=== PATIENT | male | born 1950 | race Caucasian/White ===

== ENCOUNTER 2022-06-04 14:58 | Emergency (ER) | payer MEDICARE ==
[2022-06-04] MEDS ORDERED: Sodium Chloride 0.9% 1000 ML 1,000 ML IV SCH (15:15)
[2022-06-04] MEDS ORDERED: Sodium Chloride 0.9% 1000 ML 1,000 ML ONE (15:17)
[2022-06-04 15:56] VITALS: BP 174/82
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
[2022-06-04 17:09] LABS: Absolute Neutrophil Ct (ANC) 3.48 x10^3/uL (1.4-6.9); Basophil (Absolute #) 0.02 x10^3/uL (0-0.4); Eosinophil % 3.1 % (0.00-5.0); Eosinophil (Absolute #) 0.16 x10^3/uL (0-0.5); Hematocrit 36.9 % (42-50); Lymphocyte (Absolute #) 0.89 x10^3/uL (1.0-4.6); Lymphocytes % 17.5 % (24.0-44.0); Mean Cell Volume 90.4 fL (78-100); Mean Corpuscular Hemoglobin 29.4 pg (26-32); Mean Corpuscular Hgb Concent. 32.5 g/dL (32-36); Mean Platelet Volume 9.4 fL (7.5-11.0); Monocyte (Absolute #) 0.52 x10^3/uL (0.0-1.3); Monocytes % 10.2 % (0.0-12.0); Neutrophil % 68.6 % (36.0-66.0); Platelet Count 155 x10^3/uL (150-450); Red Blood Count 4.08 x10^6/uL (4.1-5.6); Red Cell Distribution Width 13.5 % (11.5-14.0); White Blood Count 5.1 x10^3/uL (4.0-10.5)
[2022-06-04 17:15] LABS: Appearance CLEAR (CLEAR); Bilirubin NEGATIVE (NEGATIVE); Dipstick done @ ? MAIN LAB; Glucose NEGATIVE (NEGATIVE); Ketones NEGATIVE (NEGATIVE); Nitrite NEGATIVE (NEGATIVE); Ph 5.5 (5-6); Protein,Urine Dip NEGATIVE (Negative); RBC NEGATIVE Ery/ul (0-5); Specific Gravity 1.015 (1.005-1.025); Urobilinogen 0.2 mg/dL (0-1)
[2022-06-04 17:22] LABS: ALBUMIN 3.7 g/dL (3.5-5.0); ALKALINE PHOSPHATASE 113 U/L (38-126); ANION GAP 11.1 MEQ/L (5-15); BLOOD UREA NITROGEN 12 mg/dL (9-20); CHLORIDE 111 mmol/L (98-107); Calcium 8.5 mg/dL (8.4-10.2); Carbon Dioxide 20 mmol/L (22-30); Creatinine 1 0.94 mg/dL (0.66-1.25); EST GLOMERULAR FILTRATION RATE > 60.0 ML/MIN; Glucose 111 mg/dL (74-106); LIPASE 269 U/L (23-300); Potassium 4.2 mmol/L (3.5-5.1); SGOT/AST 31 U/L (17-59); SGPT/ALT 27 U/L (0-50); SODIUM 138 mmol/L (137-145)
[2022-06-04 17:34] LABS: Mucus SLIGHT /HPF (NEGATIVE); RBC 0-2 /HPF (0-2); WBC 0-2 /HPF (0-5)
[2022-06-04 17:35] LABS: Bacteria NONE SEEN /HPF (NEGATIVE); Urine Cultured Indicated? NO
[2022-06-04 18:02] VITALS: PULSE 73; O2SAT 97
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
== END 2022-06-04 18:02 | disposition home or self-care (01) ==
LOC: ED 14:58
DX: S00.83XA Contusion of other part of head, initial encounter (principal); S60.221A Contusion of right hand, initial encounter; V43.52XA Car driver injured in collision with other type car in traffic accident, initial encounter; N28.1 Cyst of kidney, acquired; E78.5 Hyperlipidemia, unspecified; I10 Essential (primary) hypertension; J44.9 Chronic obstructive pulmonary disease, unspecified; Z79.01 Long term (current) use of anticoagulants; Z79.899 Other long term (current) drug therapy
CPT/HCPCS: 36000; 36415; 70450; 71260; 72125; 73130; 74177; 80053; 81015; 83690; 84484; 85025; 93005; 99285

== ENCOUNTER 2022-07-04 11:14 | Emergency (ER) | payer MEDICARE ==
[2022-07-04] MEDS ORDERED: Sodium Chloride 0.9% 1000 ML 1,000 ML IV SCH (12:00)
[2022-07-04 12:31] LABS: Absolute Neutrophil Ct (ANC) 2.83 x10^3/uL (1.4-6.9); Basophil (Absolute #) 0.01 x10^3/uL (0-0.4); Eosinophil % 3.6 % (0.00-5.0); Eosinophil (Absolute #) 0.16 x10^3/uL (0-0.5); Hematocrit 37.1 % (42-50); Hemoglobin 12.3 g/dL (12.5-18.0); Lymphocyte (Absolute #) 1.05 x10^3/uL (1.0-4.6); Lymphocytes % 23.6 % (24.0-44.0); Mean Cell Volume 89.2 fL (78-100); Mean Corpuscular Hemoglobin 29.6 pg (26-32); Mean Corpuscular Hgb Concent. 33.2 g/dL (32-36); Mean Platelet Volume 8.9 fL (7.5-11.0); Monocyte (Absolute #) 0.39 x10^3/uL (0.0-1.3); Monocytes % 8.8 % (0.0-12.0); Neutrophil % 63.6 % (36.0-66.0); Platelet Count 135 x10^3/uL (150-450); Red Blood Count 4.16 x10^6/uL (4.1-5.6); Red Cell Distribution Width 13.2 % (11.5-14.0); White Blood Count 4.5 x10^3/uL (4.0-10.5)
[2022-07-04] MEDS ORDERED: Sodium Chloride 0.9% 1000 ML 1,000 ML ONE (12:45)
[2022-07-04 12:50] LABS: ANION GAP 11.4 MEQ/L (5-15); BILIRUBIN,TOTAL 0.4 mg/dL (0.2-1.3); Calcium 8.8 mg/dL (8.4-10.2); Creatinine 1 1.48 mg/dL (0.66-1.25); EST GLOMERULAR FILTRATION RATE 49.7 ML/MIN; Potassium 3.9 mmol/L (3.5-5.1); Total Protein 6.6 g/dL (6.3-8.2)
[2022-07-04 12:59] LABS: INR 1.03 (0.8-3.0); PROTIME 10.9 SECONDS (9.4-12.5); PTT 30.8 SECONDS (25.1-36.5)
[2022-07-04 13:06] LABS: D-DIMER QUANTITATIVE 0.88 mg/L (0.0-0.50)
[2022-07-04 13:10] VITALS: PULSE 65
--- NOTE | 2022-07-04 13:48 | XRAY ---
Indication: Left chest pain and short of breath. Elevated d-dimer. Multiple contiguous axial images obtained through the chest using 80 cc Isovue 370 contrast and PE protocol. Comparison: June 04, 2022 Good opacification of the pulmonary arteries to include the lobar and segmental branches. No pulmonary embolus. Heart not enlarged again with scattered chronic calcifications. Aorta is normal in course and caliber again with mild scattered arteriosclerotic calcifications. No pathologic mediastinal/hilar lymphadenopathy. New small hiatal hernia. Lungs again demonstrates mild bilateral dependent atelectasis, mild bibasilar subsegmental atelectasis/scarring right greater than left, and biapical subpleural cystic changes. No new pulmonary mass/nodule, infiltrate, effusion, or pneumothorax. Bony thorax intact again with osteopenia, mild/moderate degenerative changes throughout the spine, and left shoulder arthroplasty. Limited upper abdomen again demonstrates large right renal cyst and right main renal artery stent. Impression: 1. Negative pulmonary embolus. No new/acute cardiopulmonary abnormalities. 2. New small hiatal hernia. 3. Again chronic findings including bibasilar atelectasis/scarring, biapical subpleural cystic changes, arteriosclerotic disease, chronic bony findings, and right renal cyst.
[2022-07-04 14:08] VITALS: BP 145/78; O2SAT 98
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
== END 2022-07-04 14:44 | disposition home or self-care (01) ==
LOC: ED 11:14
DX: R09.1 Pleurisy (principal); R07.9 Chest pain, unspecified; R05.2 Subacute cough; E78.5 Hyperlipidemia, unspecified; I10 Essential (primary) hypertension; Z79.01 Long term (current) use of anticoagulants; Z79.899 Other long term (current) drug therapy
CPT/HCPCS: 36000; 36415; 71260; 80053; 84484; 85025; 85379; 85610; 85730; 93005; 99284

== ENCOUNTER 2022-08-28 09:13 | Day surgery (SDC) | payer MEDICARE, OTHER ==
--- NOTE | 2022-06-12 09:02 | HP ---
DATE OF SURGERY: 06/12/2022 HISTORY OF PRESENT ILLNESS: The patient is a 71-year-old patient who has had some reflux, epigastric pain, history of ulcers in the past. Last upper endoscopy five years ago. Family history negative for esophageal cancer. He is in need of upper endoscopy. PAST MEDICAL HISTORY: Hyperlipidemia, renal disease, history of ulcers, history post-traumatic stress disorder, chronic obstructive pulmonary disease, hypertension, reflux. PAST SURGICAL HISTORY: Knee arthroplasty. Colonoscopy. Upper endoscopy. Colon resection. Shoulder replacement. MEDICATIONS: Trazodone, tizanidine, sucralfate, rivaroxaban, nitroglycerin, lisinopril, levothyroxine, hydralazine, gabapentin, cetirizine, carvedilol, atorvastatin, aspirin. ALLERGIES: DOXYCYCLINE (BLISTERS). FAMILY HISTORY: Heart disease, chronic obstructive pulmonary disease as well as other cancers. Negative for colon cancer. Negative for esophageal cancer. SOCIAL HISTORY: Former smoker. No alcohol abuse. REVIEW OF SYSTEMS: Fourteen systems reviewed. No chest pain or palpitations. Other systems negative or noncontributory as above and per preadmission questionnaire. PHYSICAL EXAMINATION: GENERAL: No acute distress. HEENT: Sclerae nonicteric. NECK: No JVD. CHEST: Equal excursion, nonlabored breathing. CVS: Regular rate and rhythm. ABDOMEN: Soft. No peritoneal signs. EXTREMITIES: No significant edema. SKIN: Dry. NEURO: Alert, oriented, moving extremities symmetrically. PSYCH: Appropriate mood and affect. IMPRESSION: Reflux, epigastric pain, prior history of ulcer in the past in need of upper endoscopy and possible biopsy. General risk of bleeding or infection, risk of bowel injury or perforation possibly requiring further procedure, risk of missed or nondiagnosis or incomplete exam, possibly requiring barium swallow, other studies or procedures. General risk of anesthesia or sedation, risk of bowel prep but not limited to, consent obtained, will proceed with outpatient EGD, possible biopsy.
--- NOTE | 2022-08-28 08:22 | HP ---
DATE OF SURGERY: 08/28/2022 HISTORY OF PRESENT ILLNESS: The patient is a 72-year-old with history of some reflux and epigastric pain, history of ulcers in the past. He had upper endoscopy years ago. He is in need of upper endoscopy. Family history negative for esophageal cancer. He was originally scheduled back in June but canceled and rescheduling at this time. PAST MEDICAL HISTORY: Hyperlipidemia, renal disease, history of ulcers, history of post-traumatic stress disorder, heartburn, hypertension, chronic obstructive pulmonary disease. He had some sinus infections in the past, hard of hearing and wears glasses and has some reflux. PAST SURGICAL HISTORY: Knee arthroplasty, colonoscopy, fem/pop, colon resection in the past, shoulder replacement, upper endoscopy. MEDICATIONS: Trazodone, tizanidine, sucralfate, Xarelto, nitroglycerin, Myrbetriq, lisinopril, levofloxacin, hydralazine, gabapentin, cetirizine, carvedilol, atorvastatin, aspirin, ALLERGIES: DOXYCYCLINE (HAND BLISTERS). FAMILY HISTORY: Heart attack, cancer, chronic obstructive pulmonary disease. SOCIAL HISTORY: Former smoker. No alcohol abuse. REVIEW OF SYSTEMS: Fourteen systems reviewed. No chest pain or palpitations. Other systems negative or noncontributory as above and per preadmission questionnaire. PHYSICAL EXAMINATION: BMI 30.41. GENERAL: No acute distress. HEENT: Sclerae nonicteric. NECK: No JVD. CHEST: Equal excursion, nonlabored breathing. CVS: Regular rate and rhythm. ABDOMEN: Soft. No peritoneal signs. EXTREMITIES: No significant edema. NEURO: Alert, oriented, moving extremities symmetrically. PSYCH: Appropriate mood and affect. SKIN: Dry. IMPRESSION: History of some reflux, epigastric pain, prior history of ulcers. He is need of upper endoscopy for further evaluation. General risk of bleeding or infection, risk of bowel injury or perforation possibly requiring further procedure, risk of missed or nondiagnosis or incomplete exam, possibly requiring barium swallow, other studies or procedures. General risk of aspiration, risk of anesthesia but not limited to, consent obtained, will proceed with EGD possible biopsy as an outpatient.
[2022-08-28] MEDS ORDERED: Lactated Ringers 1,000 ML IV SCH (10:00)
[2022-08-28] MEDS ORDERED: DIPRIVAN 200 MG/20 ML IV ONE (11:27)
[2022-08-28] MEDS ORDERED: Xylocaine-Mpf 2% 5 Ml Vial ONE (11:27)
[2022-08-28 12:33] VITALS: O2SAT 97
[2022-08-28 12:43] VITALS: BP 175/89; PULSE 60
--- NOTE | 2022-08-28 14:12 | OP ---
SURGERY DATE/TIME: 08/28/2022 1129 PREOPERATIVE DIAGNOSIS: Increased reflux and epigastric pain, prior history of ulcers in the past, need for follow up upper endoscopy. POSTOPERATIVE DIAGNOSES: 1) Mild distal erosive esophagitis. 2) Patchy area of salmon-pink mucosa island proximal esophagus but not in the distal esophagus. PROCEDURES: 1) EGD with cold biopsy of the small bowel to evaluate for celiac sprue. 2) Cold biopsy of the antrum to evaluate for Helicobacter pylori. 3) Multiple cold biopsies distal esophagus to evaluate for esophagitis. 4) Multiple cold biopsies of patchy island area of proximal esophagus salmon-pink mucosa proximal esophagus. SURGEON: Dr. Jamey Merritt. ANESTHESIA: MAC. ESTIMATED BLOOD LOSS: Minimal. INDICATIONS: As noted above. Risks and benefits explained in detail and not limited to and consent obtained. DESCRIPTION OF PROCEDURE AND FINDINGS: The patient is taken to the endoscopy room. MAC anesthesia was introduced. After official time out and no disagreement with planned procedure, a bite block positioned. Video gastroscope easily passed down through the esophagus to the patent pylorus to the third portion of the duodenum. First, second and third portion of the duodenum no signs of any ulcers. Cold biopsy taken to rule out celiac or other causes of epigastric pain and symptoms. No ulcers had been seen in the stomach on the way through. Scope pulled back into the stomach. There was just some mild erythema whether this is normal variation versus early inflammation, cold biopsy is taken of the antrum for Helicobacter pylori. Good hemostasis noted. On retroflex the gastroesophageal junction snug against the scope. No signs of any hiatal hernia seen on endoscopy. The scope is straightened. Gastroesophageal junction about 40 cm. There was a short segment of some distal erosive esophagitis with salmon-pink mucosa this area was short in nature, just a few millimeters. There was further just very tiny, thin evidence of what looks like he had some erosions extending up a little higher in the distal esophagus but again it looks like it is maybe old and healed or partially healed. Otherwise the scope pulled up. No signs of any masses. Multiple cold biopsies had been taken in distal esophagus. Scope pulled back up the proximal esophagus. At about 7 to 8 cm there is a patchy island of some salmon-pink mucosa extending around. No signs of any masses. Multiple cold biopsies taken of this to evaluate for inflammation versus Medrano's. Good hemostasis noted. Scope is withdrawn. Findings discussed with his brother out in the waiting area.
== END 2022-08-28 12:48 | disposition home or self-care (01) ==
LOC: SDC 09:13
PROVIDERS: ATTEND Surgery
DX: K22.10 Ulcer of esophagus without bleeding (principal); K21.9 Gastro-esophageal reflux disease without esophagitis; R10.13 Epigastric pain; Z87.11 Personal history of peptic ulcer disease
CPT/HCPCS: 99100; J2704

== ENCOUNTER 2022-11-10 12:26 | Emergency (ER) | payer MEDICARE ==
[2022-11-10] MEDS ORDERED: TORAdol 30 mg Injection IM ONE (12:44)
[2022-11-10] MEDS ORDERED: TORAdol 30 mg Injection ONE (12:47)
--- NOTE | 2022-11-10 12:50 | ERPHSYRPT ---
- History of Present Illness Source: patient Exam Limitations: no limitations Patient Subjective Stated Complaint: pt was lifting heavy boxes yesterday when he felt his left shoulder pop and began to have pain that radiated down his left arm to his pinky. pt reports a previous L shoulder replacement with hardware. Triage Nursing Assessment: pt is axo3, pupils perrl, afebrile, resps easy and non labored, cap refill < 3 seconds, radial pulses strong and equal, pt skin pi nk warm dry. pt sensation intact. ROM limited to the LUE, old surgical scar noted to the L shoulder. no obvious injury or deformity noted. Physician History: 72 yo WM w L shoulder replacement complains of L shoulder pain after lifting a box of heavy tools yesterday. Pt heard a "pop" and currently has pain rated 8/10. He denies falling and other injuries at this time. No chest pain or dyspnea noted. Occurred: yesterday Method of Injury: other (Lifting box of tools) Quality: constant Severity of Pain-Max: severe Severity of Pain-Current: severe Extremities Pain Location: shoulder: left Modifying Factors: Improves With: movement Associated Symptoms: none Allergies/Adverse Reactions: doxycycline Allergy (Verified 11/10/22 12:41) hand blisters [id number]-[id number]-ImA Reductase Inhibitor Adverse Reaction (Verified 11/10/22 12:41) leg weakness Home Medications: Amlodipine Besylate [Norvasc] 10 mg PO DAILY 05/01/22 [History] Atorvastatin Calcium [Lipitor] 80 mg PO UD 05/01/22 [History] Cetirizine HCl 10 mg PO DAILY 05/01/22 [History] Cholecalciferol (Vitamin D3) [Vitamin D3] 1 tab PO DAILY 05/01/22 [History] Gabapentin [Neurontin ] 1 tab PO TID 05/01/22 [History] Hydralazine HCl 50 mg PO BID 05/01/22 [History] Mirabegron [Myrbetriq] 25 mg PO HS 05/01/22 [History] Multivit with Minerals/Lutein [Vitrum Senior Tablet] 1 each PO DAILY 05/01/22 [History] Sucralfate 1 gm [Carafate 1 GM] 1 g PO ACHS 05/01/22 [History] Tizanidine HCl 4 mg [Zanaflex 4 MG] 1 tab PO TID 05/01/22 [History] Trazodone HCl 3 tab PO HS 05/01/22 [History] buPROPion HCL [Wellbutrin Xl] 300 mg PO DAILY 05/01/22 [History] carvediloL [Carvedilol] 25 mg PO BID 05/01/22 [History] lisinopriL [Lisinopril] 40 mg PO DAILY 05/01/22 [History] Nitroglycerin 0.4 mg Tablet [Nitrostat 0.4 MG Tablet] 0.4 mg SL UD 05/30/22 [History] Omeprazole 40 mg PO BID 08/28/22 [History] Hx Tetanus, Diphtheria Vaccination/Date Given: Yes Hx Influenza Vaccination/Date Given: Yes Hx Pneumococcal Vaccination/Date Given: Yes Immunizations Up to Date: Yes Travel Risk - International Travel Have you traveled outside of the country in past 3 weeks: No - Coronavirus Screening Are you exhibiting any of the following symptoms?: No Close contact with a COVID-19 positive Pt in past 14-21 Days: No - Vaccine Status Have you recieved a Covid-19 vaccination: Yes Transmission Mechanic: Moderna - Vaccination Dates Date of 2cond Vaccination (if applicable): unk - Review of Systems Constitutional: No Symptoms Eyes: No Symptoms Ears, Nose, & Throat: No Symptoms Respiratory: No Symptoms Cardiac: No Symptoms Abdominal/Gastrointestinal: No Symptoms Skin: No Symptoms Neurological: No Symptoms Psychological: No Symptoms Endocrine: No Symptoms Hematologic/Lymphatic: No Symptoms Immunological/Allergic: No Symptoms - Past Medical History Pertinent Past Medical History: Yes Neurological History: No Pertinent History ENT History: No Pertinent History Cardiac History: Coronary Artery Disease, Deep Vein Thrombosis, High Cholesterol, Hypertension, Other Respiratory History: COPD Endocrine Medical History: No Pertinent History Musculoskeletal History: Degenerative Disk Disease GI Medical History: Colitis, GERD, Ulcer History: No Pertinent History Psycho-Social History: Depression Male Reproductive Disorders: Prostate Problems - Past Surgical History Past Surgical History: Yes Neuro Surgical History: No Pertinent History Cardiac: Cardiac Catheterization, Cardiac Stent Respiratory: No Pertinent History Gastrointestinal: Bowel Surgery, Colon Resection, Hernia Repair Genitourinary: No Pertinent History Musculoskeletal: No Pertinent History, Orthopedic Surgery Male Surgical History: Vasectomy Other Surgical History: rt knee,lt shoulder - Social History Smoking Status: Current every day smoker How long have you smoked: age 9 Exposure to second hand smoke: No Drug Use: none Patient Lives Alone: Yes - Nursing Vital Signs Nursing Vital Signs: Initial Vital Signs Temperature 98 F 11/10/22 12:31 Pulse Rate 73 11/10/22 12:31 Respiratory Rate 20 11/10/22 12:31 Blood Pressure 152/86 11/10/22 12:31 O2 Sat by Pulse Oximetry 100 11/10/22 12:31 Pain Scale Pain Intensity 8 Hypertensive - Physical Exam General Appearance: no apparent distress Eyes, Ears, Nose, Throat Exam: normal ENT inspection, TMs normal, pharynx normal, moist mucous membranes Neck Exam: normal inspection, non-tender, supple, full range of motion, No Brudzinski, No Kernig's, No meningismus, No carotid bruit Cardiovascular/Respiratory Exam: chest non-tender, normal breath sounds, regular rate/rhythm, heart sounds normal, no ecchymosis Abdominal Exam: non-tender, soft (+ ileostomy) Back Exam: normal inspection, normal range of motion, No CVA tenderness, No ve rtebral tenderness Shoulder Exam: bone tenderness (L shoulder TTP anteriorly/pain w movement/Good radial pulse, distal sensation, and capillary return) Elbow/Forearm Exam: normal inspection Wrist Exam: normal inspection Hand Exam: normal inspection Neuro/Tendon Exam: normal sensation, normal motor functions, normal tendon functions, responds to pain Mental Status Exam: alert, oriented x 3, cooperative Skin Exam: normal color, warm, dry SpO2 Interpretation: normal SpO2: 100 O2 Delivery: Room Air - Course Nursing assessment & vital signs reviewed: Yes - Radiology Exams Shoulder X-ray Interpretation: Discussed w/ radiologist (L shoulder prosthesis intact/Osteoarthritis) Ordered Tests: Active Orders 24 hr Category Date Time Status Sling Application STAT Care 11/10/22 13:15 Active SHOULDER Stat Exams 11/10/22 12:38 Completed Medication Summary Discontinued Medications Generic Name Dose Route Start Last Admin Trade Name Byronq PRN Reason Stop Dose Admin Ketorolac Tromethamine 15 mg 11/10/22 12:44 11/10/22 12:49 Ketorolac Tromethamine 30 Mg/Ml Inj IM 11/10/22 12:45 15 mg STAT ONE Administration Ketorolac Tromethamine Confirm 11/10/22 12:47 Ketorolac Tromethamine 30 Mg/Ml Inj Administered 11/10/22 12:48 Dose 30 mg .ROUTE .STK-MED ONE - Progress Progress: improved Progress Note: 11/10/22 13:18 Nursing note and vital signs reviewed No food or hosing insecurities noted Pain improved w 15mg IM Toradol Sling per nursing/NVI(ANNA) XR reviewed and shared w pt [facility] Counseled pt/family regarding: diagnosis, need for follow-up, rad results Medical Desision Making - Diagnostic Testing Diagnostic test were ordered, analyzed, and reviewed by me: Yes Radiological Interpretation: Reviewed by me - Risk of complications Minimal Risk: Minimal risk of morbidity - Departure Departure Disposition: Home Clinical Impression: Left shoulder strain Condition: Stable Critical Care Time: No Referrals: SHERRELL SÁNCHEZ MD [Primary Care Provider] - Follow up/PCP as directed Instructions: Overuse Injuries (DC), Shoulder Pain ED Additional Instructions: [facility] with the [facility] Sling for 4-5 days Toradol as needed for pain No lifting w left arm until cleared by the [facility] Prescriptions: Ketorolac Trometh 10 mg Tab [TORAdol 10 MG TABLET] 10 mg PO TID PRN PRN #10 tablet PRN Reason: Pain
--- NOTE | 2022-11-10 13:09 | XRAY ---
Indication: Pain, numbness, and "pop." Comparison: None 3 view left shoulder demonstrates arthroplasty with intact prosthesis and small posterior inferior heterotopic ossification similar to CT chest July 04, 2022. Elsewhere osteopenia, moderate AC degenerative changes with tiny inferior spurring, and moderate multilevel degenerative spondylosis. No other bony, articular, or soft tissue abnormalities.
[2022-11-10 13:28] VITALS: BP 148/89; PULSE 68; O2SAT 99
== END 2022-11-10 13:28 | disposition home or self-care (01) ==
LOC: ED 12:26
DX: S46.912A Strain of unspecified muscle, fascia and tendon at shoulder and upper arm level, left arm, initial encounter (principal); X50.0XXA Overexertion from strenuous movement or load, initial encounter; Z96.612 Presence of left artificial shoulder joint; E78.5 Hyperlipidemia, unspecified; I10 Essential (primary) hypertension; Z79.899 Other long term (current) drug therapy; Z72.0 Tobacco use
CPT/HCPCS: 73030; 96372; 99283; J1885

== ENCOUNTER 2022-11-28 09:32 | Emergency (ER) | payer MEDICARE ==
--- NOTE | 2022-11-28 09:59 | ERPHSYRPT ---
- History of Present Illness Source: patient Exam Limitations: other (Poor historian) Patient Subjective Stated Complaint: Pt states "I have ulcers and I have been coughing up a little blood but now my throat hurts so bad and my voice is all raspy." Triage Nursing Assessment: Pt presented alert and oriented X 3, skin wpd. Pt ambualtes with an upright steady gait, able to speak in clear full sentences. Pt voice is raspy and rough. Physician History: 72 yo WM w cough x 4 days. Pt also has coryza and a sore throat. Sputum has been blood tinged. He is mildly dyspneic. Nausea/vomiting/diarrhea/melena/hematochezia/chest pain/abdominal pain all denied. Timing/Duration: other (4 days) Possible Cause: occasional episodes Modifying Factors: Improves With: activity Associated Symptoms: cough, nasal congestion, nasal drainage, shortness of breath, sore throat, No fever, No chills, No chest pain/soreness, No dizziness, No earache, No facial pain, No headache, No lightheadedness, No muscle aches, No sinus infection, No wheezing Allergies/Adverse Reactions: doxycycline Allergy (Verified 11/10/22 12:41) hand blisters [id number] Reductase Inhibitor Adverse Reaction (Verified 11/10/22 12:41) leg weakness Home Medications: Amlodipine Besylate [Norvasc] 10 mg PO DAILY 05/01/22 [History] Atorvastatin Calcium [Lipitor] 80 mg PO UD 05/01/22 [History] Cetirizine HCl 10 mg PO DAILY 05/01/22 [History] Cholecalciferol (Vitamin D3) [Vitamin D3] 1 tab PO DAILY 05/01/22 [History] Gabapentin [Neurontin ] 1 tab PO TID 05/01/22 [History] Hydralazine HCl 50 mg PO BID 05/01/22 [History] Mirabegron [Myrbetriq] 25 mg PO HS 05/01/22 [History] Multivit with Minerals/Lutein [Vitrum Senior Tablet] 1 each PO DAILY 05/01/22 [History] Sucralfate 1 gm [Carafate 1 GM] 1 g PO ACHS 05/01/22 [History] Tizanidine HCl 4 mg [Zanaflex 4 MG] 1 tab PO TID 05/01/22 [History] Trazodone HCl 3 tab PO HS 05/01/22 [History] buPROPion HCL [Wellbutrin Xl] 300 mg PO DAILY 05/01/22 [History] carvediloL [Carvedilol] 25 mg PO BID 05/01/22 [History] lisinopriL [Lisinopril] 40 mg PO DAILY 05/01/22 [History] Nitroglycerin 0.4 mg Tablet [Nitrostat 0.4 MG Tablet] 0.4 mg SL UD 05/30/22 [History] Omeprazole 40 mg PO BID 08/28/22 [History] Hx Tetanus, Diphtheria Vaccination/Date Given: Yes Hx Influenza Vaccination/Date Given: Yes Hx Pneumococcal Vaccination/Date Given: Yes Immunizations Up to Date: Yes Travel Risk - International Travel Have you traveled outside of the country in past 3 weeks: No - Coronavirus Screening Are you exhibiting any of the following symptoms?: Yes Symptoms: Cough: New Onset - Vaccine Status Have you recieved a Covid-19 vaccination: Yes 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 - Vaccination Dates Date of 2cond Vaccination (if applicable): unk - Review of Systems Constitutional: No Symptoms, Malaise Eyes: No Symptoms Ears, Nose, & Throat: No Symptoms, Nose Congestion, Nose Discharge Respiratory: No Symptoms, Cough, Dyspnea Cardiac: No Symptoms Abdominal/Gastrointestinal: No Symptoms Genitourinary Symptoms: No Symptoms Musculoskeletal: No Symptoms Skin: No Symptoms Neurological: No Symptoms Psychological: No Symptoms Endocrine: No Symptoms Hematologic/Lymphatic: No Symptoms Immunological/Allergic: No Symptoms - Past Medical History Pertinent Past Medical History: Yes Neurological History: No Pertinent History ENT History: No Pertinent History Cardiac History: Coronary Artery Disease, Deep Vein Thrombosis, High Cholesterol, Hypertension, Other Respiratory History: COPD Endocrine Medical History: No Pertinent History Musculoskeletal History: Degenerative Disk Disease GI Medical History: Colitis, GERD, Ulcer History: No Pertinent History Psycho-Social History: Depression Male Reproductive Disorders: Prostate Problems - Past Surgical History Past Surgical History: Yes Neuro Surgical History: No Pertinent History Cardiac: Cardiac Catheterization, Cardiac Stent Respiratory: No Pertinent History Gastrointestinal: Bowel Surgery, Colon Resection, Hernia Repair Genitourinary: No Pertinent History Musculoskeletal: No Pertinent History, Orthopedic Surgery Male Surgical History: Vasectomy Other Surgical History: rt knee,lt shoulder - Social History Smoking Status: Current every day smoker How long have you smoked: age 9 Exposure to second hand smoke: No Drug Use: none Patient Lives Alone: Yes - Nursing Vital Signs Nursing Vital Signs: Initial Vital Signs Temperature 97.1 F 11/28/22 09:38 Pulse Rate 74 11/28/22 09:38 Respiratory Rate 24 11/28/22 09:38 Blood Pressure 152/67 11/28/22 09:38 O2 Sat by Pulse Oximetry 99 11/28/22 09:38 Pain Scale Pain Intensity 0 Hypertensive - Physical Exam General Appearance: no apparent distress Eye Exam: PERRL/EOMI, eyes nml inspection Ears, Nose, Throat Exam: normal ENT inspection, TMs normal, moist mucous membranes, pharyngeal erythema (Mild) Neck Exam: normal inspection, non-tender, supple, full range of motion, No meningismus, No mass, No Brudzinski, No Kernig's Respiratory Exam: normal breath sounds, airway intact, crackles/rales (Faint rales R base), No respiratory distress Cardiovascular Exam: regular rate/rhythm, normal heart sounds, normal peripheral pulses, capillary refill <2 sec, No murmur Gastrointestinal/Abdomen Exam: soft, normal bowel sounds, No tenderness Back Exam: normal inspection, normal range of motion, No CVA tenderness, No vertebral tenderness Extremity Exam: normal inspection, normal range of motion Neurologic Exam: alert, oriented x 3, cooperative, analysis manager II-XII nml as tested, normal mood/affect, nml cerebellar function, nml station & gait, sensation nml Skin Exam: normal color, warm, dry Lymphatic Exam: No adenopathy SpO2 Interpretation: normal SpO2: 99 O2 Delivery: Room Air - Course Nursing assessment & vital signs reviewed: Yes - Radiology Exams Chest X-ray Interpretation: Discussed w/ radiologist (CXR negative) Ordered Tests: Active Orders 24 hr Category Date Time Status CHEST 1 VIEW (PORTABLE) Stat Exams 11/28/22 09:52 Completed CBC W DIFF Stat Lab 11/28/22 10:15 Completed CMP Stat Lab 11/28/22 10:15 Completed TROPONIN Q4H Lab 11/28/22 10:15 Completed TROPONIN Q4H Lab 11/28/22 12:45 Completed TROPONIN Q4H Lab 11/28/22 18:00 Ordered Lab/Rad Data: Laboratory Result Diagrams 11/28/22 10:15 11/28/22 10:15 Laboratory Results 11/28/22 11/28/22 11/28/22 Range/Units 12:45 10:15 10:15 WBC (4.0-10.5) x10^3/uL RBC (4.1-5.6) x10^6/uL Hgb (12.5-18.0) g/dL Hct (42-50) % MCV (78-100) fL MCH (26-32) pg MCHC (32-36) g/dL RDW (11.5-14.0) % Plt Count (150-450) x10^3/uL MPV (7.5-11.0) fL Gran % (36.0-66.0) % Immature Gran % (Auto) (0.00-0.4) % Nucleat RBC Rel Count (0.00-0.1) % Eos # (Auto) (0-0.5) x10^3/uL Immature Gran # (Auto) (0.00-0.03) x10^3u/L Absolute Lymphs (auto) (1.0-4.6) x10^3/uL Absolute Monos (auto) (0.0-1.3) x10^3/uL Absolute Nucleated RBC (0.00-0.01) x10^3u/L Lymphocytes % (24.0-44.0) % Monocytes % (0.0-12.0) % Eosinophils % (0.00-5.0) % Basophils % (0.0-0.4) % Absolute Granulocytes (1.4-6.9) x10^3/uL Basophils # (0-0.4) x10^3/uL Sodium (137-145) mmol/L Potassium (3.5-5.1) mmol/L Chloride (98-107) mmol/L Carbon Dioxide (22-30) mmol/L Anion Gap (5-15) MEQ/L BUN (9-20) mg/dL Creatinine (0.66-1.25) mg/dL Estimated GFR ML/MIN Glucose (74-106) mg/dL Calcium (8.4-10.2) mg/dL Total Bilirubin (0.2-1.3) mg/dL AST (17-59) U/L ALT (0-50) U/L Alkaline Phosphatase (38-126) U/L Troponin I 0.012 (0.000-0.034) ng/mL Serum Total Protein (6.3-8.2) g/dL Albumin (3.5-5.0) g/dL Influenza Type A Ag NEGATIVE (NEGATIVE) Influenza Type B Ag NEGATIVE (NEGATIVE) RSV (PCR) NEGATIVE (NEGATIVE) SARS-CoV-2 (PCR) NEGATIVE (NEGATIVE) Group A Strep Antibody NOT DETECTED (NEGATIVE) 11/28/22 11/28/22 11/28/22 Range/Units 10:15 10:15 10:15 WBC 10.0 (4.0-10.5) x10^3/uL RBC 4.90 (4.1-5.6) x10^6/uL Hgb 14.2 (12.5-18.0) g/dL Hct 45.0 (42-50) % MCV 91.8 (78-100) fL MCH 29.0 (26-32) pg MCHC 31.6 L (32-36) g/dL RDW 13.7 (11.5-14.0) % Plt Count 179 (150-450) x10^3/uL MPV 9.0 (7.5-11.0) fL Gran % 83.4 H (36.0-66.0) % Immature Gran % (Auto) 0.8 H (0.00-0.4) % Nucleat RBC Rel Count 0.0 (0.00-0.1) % Eos # (Auto) 0.09 (0-0.5) x10^3/uL Immature Gran # (Auto) 0.08 H (0.00-0.03) x10^3u/L Absolute Lymphs (auto) 0.81 L (1.0-4.6) x10^3/uL Absolute Monos (auto) 0.65 (0.0-1.3) x10^3/uL Absolute Nucleated RBC 0.00 (0.00-0.01) x10^3u/L Lymphocytes % 8.1 L (24.0-44.0) % Monocytes % 6.5 (0.0-12.0) % Eosinophils % 0.9 (0.00-5.0) % Basophils % 0.3 (0.0-0.4) % Absolute Granulocytes 8.33 H (1.4-6.9) x10^3/uL Basophils # 0.03 (0-0.4) x10^3/uL Sodium 136 L (137-145) mmol/L Potassium 3.7 (3.5-5.1) mmol/L Chloride 105 (98-107) mmol/L Carbon Dioxide 22 (22-30) mmol/L Anion Gap 12.7 (5-15) MEQ/L BUN 13 (9-20) mg/dL Creatinine 0.84 (0.66-1.25) mg/dL Estimated GFR > 60.0 ML/MIN Glucose 114 H (74-106) mg/dL Calcium 8.6 (8.4-10.2) mg/dL Total Bilirubin 0.50 (0.2-1.3) mg/dL AST 26 (17-59) U/L ALT 29 (0-50) U/L Alkaline Phosphatase 68 (38-126) U/L Troponin I 0.015 (0.000-0.034) ng/mL Serum Total Protein 6.1 L (6.3-8.2) g/dL Albumin 3.6 (3.5-5.0) g/dL Influenza Type A Ag (NEGATIVE) Influenza Type B Ag (NEGATIVE) RSV (PCR) (NEGATIVE) SARS-CoV-2 (PCR) (NEGATIVE) Group A Strep Antibody (NEGATIVE) - Progress Progress Note: 11/28/22 13:36 Nursing note and vital signs reviewed No food or housing insecurities noted All lab and CXR results reviewed and shared w pt No respiratory distress in ER 11/28/22 13:38 Counseled pt/family regarding: lab results, diagnosis, need for follow-up, rad results Medical Desision Making - Diagnostic Testing Diagnostic test were ordered, analyzed, and reviewed by me: Yes Radiological Interpretation: Discussed w/ radiologist - Risk of complications Low Risk: Low risk of morbidity from additional dx testing or treatment - Departure Departure Disposition: Home Clinical Impression: URI (upper respiratory infection) Condition: Stable Critical Care Time: No Referrals: SHERRELL SÁNCHEZ MD [Primary Care Provider] - Follow up/PCP as directed Instructions: Acute Bronchitis, Adult (DC) Additional Instructions: Start Zithromax Fluids Motrin/Tylenol as needed Follow up with your family MD in 2-3 days Return to ER for worsening of condition Prescriptions: Azithromycin 250 mg [Zithromax 250 MG TABLET] 250 mg PO ZPACK #6 tablet
--- NOTE | 2022-11-28 10:25 | XRAY ---
Indication: Fever and cough. Comparison: None Portable chest demonstrates minimal bibasilar subsegmental atelectasis/scarring. No focal infiltrate, consolidation, or large effusion. Heart not enlarged with coronary stent. Bony thorax intact with osteopenia, mild degenerative changes, and left shoulder arthroplasty. Impression: Nonacute chest with chronic features.
[2022-11-28 10:54] LABS: INFLUENZA A NEGATIVE (NEGATIVE); INFLUENZA B NEGATIVE (NEGATIVE); RESPIRATORY SYNCTIAL VIRUS NEGATIVE (NEGATIVE); SARS-CoV-2 Xpert Express NEGATIVE (NEGATIVE)
[2022-11-28 10:59] LABS: Absolute Neutrophil Ct (ANC) 8.33 x10^3/uL (1.4-6.9); BASOPHIL % 0.3 % (0.0-0.4); Basophil (Absolute #) 0.03 x10^3/uL (0-0.4); Eosinophil % 0.9 % (0.00-5.0); Eosinophil (Absolute #) 0.09 x10^3/uL (0-0.5); Hemoglobin 14.2 g/dL (12.5-18.0); IMMATURE GRAN # 0.08 x10^3u/L (0.00-0.03); IMMATURE GRAN % 0.8 % (0.00-0.4); Lymphocyte (Absolute #) 0.81 x10^3/uL (1.0-4.6); Lymphocytes % 8.1 % (24.0-44.0); Mean Cell Volume 91.8 fL (78-100); Mean Corpuscular Hgb Concent. 31.6 g/dL (32-36); Monocyte (Absolute #) 0.65 x10^3/uL (0.0-1.3); Monocytes % 6.5 % (0.0-12.0); Neutrophil % 83.4 % (36.0-66.0); Platelet Count 179 x10^3/uL (150-450); Red Cell Distribution Width 13.7 % (11.5-14.0)
[2022-11-28 11:13] LABS: ALBUMIN 3.6 g/dL (3.5-5.0); ALKALINE PHOSPHATASE 68 U/L (38-126); ANION GAP 12.7 MEQ/L (5-15); BLOOD UREA NITROGEN 13 mg/dL (9-20); CHLORIDE 105 mmol/L (98-107); Calcium 8.6 mg/dL (8.4-10.2); Carbon Dioxide 22 mmol/L (22-30); Creatinine 1 0.84 mg/dL (0.66-1.25); EST GLOMERULAR FILTRATION RATE > 60.0 ML/MIN; Glucose 114 mg/dL (74-106); Potassium 3.7 mmol/L (3.5-5.1); SGOT/AST 26 U/L (17-59); SGPT/ALT 29 U/L (0-50); SODIUM 136 mmol/L (137-145); Total Protein 6.1 g/dL (6.3-8.2)
[2022-11-28 13:10] VITALS: BP 161/90; PULSE 75
[2022-11-28 13:31] VITALS: O2SAT 99
== END 2022-11-28 13:38 | disposition home or self-care (01) ==
LOC: ED 09:32
DX: J06.9 Acute upper respiratory infection, unspecified (principal); R05.1 Acute cough; R09.81 Nasal congestion; J02.9 Acute pharyngitis, unspecified; E78.5 Hyperlipidemia, unspecified; I10 Essential (primary) hypertension; Z79.899 Other long term (current) drug therapy; Z72.0 Tobacco use
CPT/HCPCS: 0241U; 36415; 71045; 80053; 84484; 85025; 87651; 99283

== ENCOUNTER 2022-12-21 13:42 | Emergency (ER) | payer OTHER ==
--- NOTE | 2022-12-21 14:24 | ERPHSYRPT ---
- History of Present Illness Time Seen by Provider: 12/21/22 14:21 Source: patient Exam Limitations: no limitations Patient Subjective Stated Complaint: Pt fell in his house 3 days ago and injured his left shoulder Triage Nursing Assessment: Pt brought self to the ER, hypertensive, rates pain as 9/10, unable to sleep due to the pain, pt fell 3 days ago and injured left shoulder, pulses normal, skin n/w/d, denies hitting head, denies LOC, doesn't appear to be in any distress Physician History: Patient is a 72-year-old male presents to our ED for evaluation of left shoulder pain. Patient states he fell 3 days ago and injured his left shoulder. Patient states that he has been experiencing discomfort since. Pain worse at night when he sleeps. Pain described as an ache that is localized. No radiation. Pain worse with movement and palpation. Pain improves with rest. Patient denies a history of the same. He voices no other complaints or concerns at this time. No other injuries reported. No BHT or LOC. No neck pain. Cervical spine cleared clinically. Portions of this note were created with voice recognition technology. There may be grammatical, spelling, punctuation or sound alike errors Occurred: days ago (3 days ago) Method of Injury: fell Quality: constant Severity of Pain-Max: moderate Severity of Pain-Current: mild Extremities Pain Location: shoulder: left Modifying Factors: Improves With: movement Associated Symptoms: none Allergies/Adverse Reactions: doxycycline Allergy (Verified 11/10/22 12:41) hand blisters [id number] Reductase Inhibitor Adverse Reaction (Verified 11/10/22 12:41) leg weakness Home Medications: Amlodipine Besylate [Norvasc] 10 mg PO DAILY 05/01/22 [History] Atorvastatin Calcium [Lipitor] 80 mg PO UD 05/01/22 [History] Cetirizine HCl 10 mg PO DAILY 05/01/22 [History] Cholecalciferol (Vitamin D3) [Vitamin D3] 1 tab PO DAILY 05/01/22 [History] Gabapentin [Neurontin ] 1 tab PO TID 05/01/22 [History] Hydralazine HCl 50 mg PO BID 05/01/22 [History] Mirabegron [Myrbetriq] 25 mg PO HS 05/01/22 [History] Multivit with Minerals/Lutein [Vitrum Senior Tablet] 1 each PO DAILY 05/01/22 [History] Sucralfate 1 gm [Carafate 1 GM] 1 g PO ACHS 05/01/22 [History] Tizanidine HCl 4 mg [Zanaflex 4 MG] 1 tab PO TID 05/01/22 [History] Trazodone HCl 3 tab PO HS 05/01/22 [History] buPROPion HCL [Wellbutrin Xl] 300 mg PO DAILY 05/01/22 [History] carvediloL [Carvedilol] 25 mg PO BID 05/01/22 [History] lisinopriL [Lisinopril] 40 mg PO DAILY 05/01/22 [History] Nitroglycerin 0.4 mg Tablet [Nitrostat 0.4 MG Tablet] 0.4 mg SL UD 05/30/22 [History] Omeprazole 40 mg PO BID 08/28/22 [History] Hx Tetanus, Diphtheria Vaccination/Date Given: Yes Hx Influenza Vaccination/Date Given: Yes Hx Pneumococcal Vaccination/Date Given: Yes Travel Risk - International Travel Have you traveled outside of the country in past 3 weeks: No - Coronavirus Screening Are you exhibiting any of the following symptoms?: No Close contact with a COVID-19 positive Pt in past 14-21 Days: No - Vaccine Status Have you recieved a Covid-19 vaccination: Yes Rock 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 - Vaccination Dates Date of 2cond Vaccination (if applicable): unk - Review of Systems Constitutional: No Symptoms, No Fever, No Chills Eyes: No Symptoms Ears, Nose, & Throat: No Symptoms Respiratory: No Symptoms, No Cough, No Dyspnea Cardiac: No Symptoms, No Chest Pain, No Edema, No Syncope Abdominal/Gastrointestinal: No Symptoms, No Abdominal Pain, No Nausea, No Vomiting, No Diarrhea Genitourinary Symptoms: No Symptoms, No Dysuria Musculoskeletal: No Symptoms, No Back Pain, No Neck Pain Skin: No Symptoms, No Rash Neurological: No Symptoms, No Dizziness, No Focal Weakness, No Sensory Changes Psychological: No Symptoms Endocrine: No Symptoms Hematologic/Lymphatic: No Symptoms Immunological/Allergic: No Symptoms All Other Systems: Reviewed and Negative - Past Medical History Pertinent Past Medical History: Yes Neurological History: No Pertinent History ENT History: No Pertinent History Cardiac History: Coronary Artery Disease, Deep Vein Thrombosis, High Cholesterol, Hypertension, Other Respiratory History: COPD Endocrine Medical History: No Pertinent History Musculoskeletal History: Degenerative Disk Disease GI Medical History: Colitis, GERD, Ulcer History: No Pertinent History Psycho-Social History: Depression Male Reproductive Disorders: Prostate Problems - Past Surgical History Past Surgical History: Yes Neuro Surgical History: No Pertinent History Cardiac: Cardiac Catheterization, Cardiac Stent Respiratory: No Pertinent History Gastrointestinal: Bowel Surgery, Colon Resection, Hernia Repair Genitourinary: No Pertinent History Musculoskeletal: No Pertinent History, Orthopedic Surgery Male Surgical History: Vasectomy Other Surgical History: rt knee,lt shoulder - Social History Smoking Status: Current every day smoker How long have you smoked: age 9 Exposure to second hand smoke: Yes Drug Use: none Patient Lives Alone: Yes - Nursing Vital Signs Nursing Vital Signs: Initial Vital Signs Temperature 98.4 F 12/21/22 13:47 Pulse Rate 75 12/21/22 13:47 Blood Pressure 146/80 12/21/22 13:47 O2 Sat by Pulse Oximetry 97 12/21/22 13:47 Pain Scale Pain Intensity 9 - Physical Exam General Appearance: no apparent distress, alert Eyes, Ears, Nose, Throat Exam: moist mucous membranes Neck Exam: non-tender, supple Cardiovascular/Respiratory Exam: chest non-tender, normal breath sounds, regular rate/rhythm, no respiratory distress Abdominal Exam: non-tender, No guarding Back Exam: normal inspection, No vertebral tenderness Shoulder Exam: limited ROM (Involved upper extremity is neurovascular tact distally. Compartments are soft. Cap refill less than 2 seconds. There is a mobile tender soft tissue nodule at the lateral aspect of the left shoulder. Overlying soft tissue intact. No signs of trauma.), No non-tender, No normal ROM, No swelling Elbow/Forearm Exam: normal inspection, non-tender, no evidence of injury, normal ROM Wrist Exam: normal inspection, non-tender, no evidence of injury, normal ROM Hand Exam: normal inspection, non-tender, no evidence of injury, normal ROM Neuro/Tendon Exam: normal sensation, normal motor functions, normal tendon functions Mental Status Exam: alert, oriented x 3, cooperative Skin Exam: normal color, warm, dry SpO2 Interpretation: normal SpO2: 97 O2 Delivery: Room Air - Course Nursing assessment & vital signs reviewed: Yes - Radiology Exams Shoulder X-ray Interpretation: Interpreted by me (Degenerative arthritis. No fractures no dislocations. Osteopenia, shoulder arthroplasty with intact prosthesis moderate AC degenerative changes with tiny inferior spurring and mild multilevel degenerative spondylolysis. No new acute findings) Ordered Tests: Active Orders 24 hr Category Date Time Status Cold Application STAT Care 12/21/22 13:49 Active SHOULDER Stat Exams 12/21/22 14:14 Taken Medication Summary Discontinued Medications Generic Name Dose Route Start Last Admin Trade Name Debra PRN Reason Stop Dose Admin Acetaminophen 975 mg 12/21/22 15:54 Acetaminophen 325 Mg Tablet PO 12/21/22 15:55 STAT ONE - Progress Progress: improved Progress Note: Patient is 72-year-old male presents to our ED with a tender left shoulder mass that is just lateral to the left shoulder. Palpation to this mobile mass reproduces pain. X-ray is negative for acute pathology. Complexity of problem addressed is low acute uncomplicated Complexity of data reviewed and analyzed is moderate. Dr. Butt independently reviewed the left shoulder x-ray. Radiology report was read. No fracture dislo cations. Chronic findings. Patient's main problem is tenderness soft tissue. Patient will be for to orthopedic clinic for follow-up. Risk of complication and or risk morbidity/mortality of patient management is low. We applied a shoulder sling. Patient had oral Tylenol for pain control. Patient referred to orthopedic clinic for follow-up. Patient will follow-up tomorrow as discussed. Patient served as independent historian. No social determinants of health present to impede follow-up. Portions of this note were created with voice recognition technology. There may be grammatical, spelling, punctuation or sound alike errors 12/21/22 15:56 Counseled pt/family regarding: diagnosis, need for follow-up, rad results - Departure Departure Disposition: Home Clinical Impression: Shoulder sprain, Fall Condition: Stable Critical Care Time: No Referrals: [facility] [Primary Care Provider] - Follow up/PCP as directed Additional Instructions: Discharge/Care Plan [facility] was seen on 12/21/22 in the Emergency Room. The patient was counseled regarding Diagnosis,Lab results, Imaging studies, need for follow up and when to return to the Emergency Room. Prescriptions given: Discharge Note I have spoken with the patient and/or caregivers. I have explained the patient's condition, diagnosis and treatment plan based on the information available to me at this time. I have answered the patient's and/or caregiver's questions and addressed any concerns. The patient and/or caregivers have as good understanding of the patient's diagnosis, condition and treatment plan as can be expected at this point. The vital signs have been stable. The patient's condition is stable and appropriate for discharge from the emergency department. The patient will pursue further outpatient evaluation with the primary care physician or other designated or consulting physician as outlined in the discharge instructions. The patient and/or caregivers are agreeable to this plan of care and follow-up instructions have been explained in detail. The patient and/or caregivers have received these instruction. The patient/and or caregivers are aware that any significant change in condition or worsening of symptoms should prompt an immediate return to this or the closest emergency department or call 911. Outpatient Orders: Ortho Referral Time Frame: 1 Day, Facility: [facility]. Hosp, Location: [facility]
[2022-12-21 14:58] VITALS: BP 135/78
[2022-12-21] MEDS ORDERED: TYLENOL 325 MG PO ONE (15:54)
[2022-12-21] MEDS ORDERED: TYLENOL 325 MG ONE (16:00)
[2022-12-21] MEDS ORDERED: NORCO 5/325 MG PO ONE (16:05)
[2022-12-21] MEDS ORDERED: NORCO 5/325 MG ONE (16:06)
[2022-12-21 16:10] VITALS: PULSE 70; O2SAT 98
--- NOTE | 2022-12-21 17:32 | XRAY ---
Indication: Pain. Comparison: November 17, 2022 3 view left shoulder unchanged again demonstrating osteopenia, shoulder arthroplasty with intact prosthesis, moderate AC degenerative changes with tiny inferior spurring, and mild multilevel degenerative spondylosis. No new/acute abnormalities.
== END 2022-12-21 16:13 | disposition home or self-care (01) ==
LOC: ED 13:42
DX: S43.402A Unspecified sprain of left shoulder joint, initial encounter (principal); W19.XXXA Unspecified fall, initial encounter; E78.5 Hyperlipidemia, unspecified; I10 Essential (primary) hypertension; Z79.899 Other long term (current) drug therapy; Z72.0 Tobacco use
CPT/HCPCS: 73030; 99283; A9270-GY

== ENCOUNTER 2023-03-06 18:14 | Emergency (ER) | payer OTHER ==
[2023-03-06 18:33] VITALS: RESP 18; TEMP 96.6
[2023-03-06] MEDS ORDERED: TYLENOL 325 MG ONE (18:40)
[2023-03-06] MEDS: TYLENOL 325 MG PO ONE (18:41)
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
[2023-03-06 20:40] VITALS: BP 107/67; PULSE 79; O2SAT 97
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
== END 2023-03-06 20:54 | disposition home or self-care (01) ==
LOC: ED 18:14
DX: T76.11XA Adult physical abuse, suspected, initial encounter (principal); N28.1 Cyst of kidney, acquired; N20.0 Calculus of kidney; J32.4 Chronic pansinusitis; R93.7 Abnormal findings on diagnostic imaging of other parts of musculoskeletal system; R51.9 Headache, unspecified; M25.551 Pain in right hip; E78.5 Hyperlipidemia, unspecified; I10 Essential (primary) hypertension; Z79.899 Other long term (current) drug therapy; Z72.0 Tobacco use
CPT/HCPCS: 70450; 74176; 99283; A9270-GY

== ENCOUNTER 2023-08-03 06:26 | Day surgery (SDC) | payer MEDICARE, OTHER ==
[2023-08-03] MEDS ORDERED: Lactated Ringers 1,000 ML IV SCH (06:30)
[2023-08-03] MEDS ORDERED: CEFAZOLIN 2 GM-D5W BAG** 2 GM/50 ML ML IV SCH (06:30)
[2023-08-03] MEDS ORDERED: Xylocaine 1% Vial 30 ML PF IJ ONE (06:38)
[2023-08-03] MEDS ORDERED: Marcaine Mpf 0.5% Vial 30 Ml ONE (06:38)
[2023-08-03] MEDS ORDERED: MEFOXIN 2 GM PREMIX** 2 GM/50 ML ML IV ONE (06:40)
[2023-08-03 07:16] LABS: Hematocrit 37.9 % (42-50); Mean Cell Volume 89.6 fL (78-100); Mean Corpuscular Hemoglobin 28.4 pg (26-32); Mean Corpuscular Hgb Concent. 31.7 g/dL (32-36); Mean Platelet Volume 9.9 fL (7.5-11.0); Platelet Count 198 x10^3/uL (150-450); Red Blood Count 4.23 x10^6/uL (4.1-5.6); Red Cell Distribution Width 13.6 % (11.5-14.0); White Blood Count 5.3 x10^3/uL (4.0-10.5)
[2023-08-03 07:30] LABS: ANION GAP 10.2 MEQ/L (5-15); BILIRUBIN,TOTAL 0.4 mg/dL (0.2-1.3); Calcium 9.5 mg/dL (8.4-10.2); Creatinine 1 0.99 mg/dL (0.66-1.25); EST GLOMERULAR FILTRATION RATE 80.4 ML/MIN; Total Protein 6.9 g/dL (6.3-8.2)
[2023-08-03 07:32] LABS: INR 0.94 (0.8-3.0); PROTIME 10.3 SECONDS (9.4-12.5); PTT 29.3 SECONDS (25.1-36.5)
[2023-08-03 07:45] VITALS: RESP 16; TEMP 97.7
[2023-08-03] MEDS ORDERED: SUBLIMAZE 100 MCG/2 ML ONE (08:28)
[2023-08-03] MEDS ORDERED: Zemuron 100 MG/10 ML ONE ×3 (08:28→09:36)
[2023-08-03] MEDS ORDERED: Versed 2 MG/2 ML Injection ONE (08:28)
[2023-08-03] MEDS ORDERED: Amidate 20 MG/10 ML IV ONE (08:28)
[2023-08-03] MEDS ORDERED: BRIDION 200MG/2ML IV ONE (09:44)
[2023-08-03] MEDS ORDERED: BREVIBLOC 100 MG/10 ML IV ONE (10:06)
--- NOTE | 2023-08-03 10:40 | XRAY ---
Indication: Left plantar plate repair, 2nd metatarsal richelle osteotomy, and 2nd digit hammertoe correction. Intraoperative fluoroscopy provided for 36 seconds. 14 digital spot images submitted for interpretation demonstrates 2nd metatarsal head richelle osteotomy and 2nd toe arthrodesis both with intact screw. Correlate with intraoperative findings/report.
[2023-08-03 10:48] VITALS: O2SAT 94
[2023-08-03 11:20] VITALS: BP 153/81; PULSE 74
--- NOTE | 2023-08-03 15:07 | XRAY ---
36 seconds of fluoroscopy was used in surgery for a left plantar plate repair, richelle osteotomy 2nd metatarsal, and hammertoe correction 2nd digit.
--- NOTE | 2023-08-07 13:21 | OP ---
SURGERY DATE/TIME: 08/03/2023 0857 PREOPERATIVE DIAGNOSES: 1) Left 2nd metatarsophalangeal joint plantar tear. 2) Hammer toe. 3) Metatarsal deformity. 4) Left foot pain. 5) Ingrown toenail media and lateral border of left hallux. POSTOPERATIVE DIAGNOSES: 1) Left second metatarsophalangeal joint plantar tear. 2) Hammer toe. 3) Metatarsal deformity. 4) Left foot pain. 5) Ingrown toenail media and lateral border of left hallux. PROCEDURES: 1) Josr osteotomy second metatarsal. 2) Plantar plate repair. 3) Hammertoe correction second digit left foot. 4) Nail avulsion with matrixectomy medial and lateral border left hallux. SURGEON: John Escamilla DPM. PAINTING DEPARTMENT SUPERVISOR: None. ANESTHESIA: General with intraoperative block consisting of 20 cc of 1:1 mixture of 1% lidocaine plain and 0.5% bupivacaine plain with a 10 cc hallux block to the left hallux and a 10 cc block to the second metatarsal. MATERIALS: For the Josr, 2.0 x 14 small headed partially threaded screw. For the plantar plate, a #2 MaxBraid. For the hammertoe, 3.0 x 40 VPC screw. INJECTABLES: 20 cc of 1:1 mixture of 1% lidocaine plain and 0.5% bupivacaine plain. INDICATIONS FOR PROCEDURE: Damion is a very pleasant 72-year-old male who presented to my clinic with multiple issues to the left lower extremity. He did have some indications of a plantar plate tear as well as an ingrown toenail to the left hallux. As a result, the patient has had a significant amount of pain. Injections have worked for a number of weeks and has kept him out of the OR for approximately six months now. The patient recently underwent shoulder surgery to the right extremity with Dr. Hadley Fregoso and has recently gotten cleared through his office to proceed with the foot surgery that we have been planning for quite some time. Given the patient's ambulatory status and independent status, the decision was made to proceed with the left lower extremity as this would make it so that he did not have to have any assistive devices following the procedure and then we would proceed with the right where there is a significant lateral calcaneal wall osteophyte that the patient would like addressed in the near future however does require some nonweight bearing to this extremity for that period of time. The patient agrees to the course and understands why the procedure is occurring. The patient has been made aware of all risks, complications and benefits of surgical intervention including but not limited to infection, hematoma, seroma, possibility of delayed wound healing, nonwound healing and possible need for further surgical intervention at a later date. No guarantees were provided as to the outcome of surgical intervention at this time. Plenty of time was allowed for the patient to ask questions which were answered to his apparent satisfaction. It is with that we decided to proceed. DESCRIPTION OF PROCEDURE AND FINDINGS: The patient was brought into the OR and placed on the OR table in the supine position. At this time general anesthesia was administered until the patient was sedated. A well-padded ankle tourniquet was applied to the patient's left ankle at the level of the perimalleolar area. Following this the left foot was prepped and draped in the typical sterile fashion. At this time an Esmarch was utilized to exsanguinate the foot and the tourniquet was set to 250 mm of Mercury. A linear incision was made over the dorsal aspect of the second metatarsophalangeal joint extending to the proximal interphalangeal joint. Following this, careful dissection was carried out not to damage any neurovascular structures. The extensor hallucis longus tendon was identified and retracted. A Z-lengthening of the tendon was then performed which directing this out of the way. The metatarsophalangeal joint was identified. It is at this time the tissue quality was noted to be extraordinarily diseased and appearance of the tendon was thin and atrophic as well as the joint surface was yellow however holding intact. From this standpoint, the decision was made to proceed with Josr osteotomy which was made perpendicular to the weightbearing surface pushing the metatarsal head back. Following this, this was pinned in place and a 2.0 x 14 mm small headed screw was introduced from a dorsal to plantar orientation making sure on lateral view not to be bicortical. Following this, the cortical overhang was removed from the site. The plantar plate was inspected and completion of the tear was provided utilizing a 15 blade. Following this, testing with a Napoleon seeing that the full plantar plate was completely removed and inspection of the joint demonstrated no particulate within the metatarsophalangeal joint. Following this, a #2 MaxBraid was drilled into the metatarsal head wrapped around both edge and passed through with a Brandon needle. From that standpoint, this was retrieved utilizing a skin hook and then drill holes made into the base of the proximal phalanx and secured in its position in a slight plantar flexion to allow for that plantar plate to heal. Following this, attention was directed to the proximal interphalangeal joint where the proximal phalangeal head was resected as well as the base of the middle phalanx utilizing 18 mm sagittal saw. Following this, a K-wire was retrograded out of the distal tip of the toe and then anterograded down to the base of the proximal phalanx. The position was checked and made to check to see if this was in an adequate position within intramedullary position. Following this, a 3.0 x 40 VPC screw was then introduced from the distal tip and secured into the proximal phalangeal base being careful not to be intra-articulate. This was checked under multiple views of fluoroscopic imaging. A weighted view was assessed and deemed to be in excellent position with slight plantar flexion of the second digit although slight floating toe which was anticipated given the plantar plate repair. Following this, the 4-0 Monocryl was utilized to repair the plantar tendon lengthening. The 4-0 Monocryl was then once again utilized to coapt the subcutaneous skin edges and 4-0 Nylon was utilized to coapt the skin in a horizontal mattress-type fashion. Following this, a nail avulsion with matrixectomy was performed to medial and lateral borders of the left hallux leaving approximately 3 to 4 mm of ingrown toenail at the edges, this was removed and Paparella curette was utilized to debride the margins of the soft tissue at the level of the matrix. Following this, three - 30 second applications of 89% Phenol were introduced into the deficit and then this was flushed with 70% isopropyl alcohol. Silvadene was applied to the gutters of the nail, 2x2 and sterile Coban was wrapped around the digit. Following this, the patient was then reversed from anesthesia and returned to the postoperative anesthesia care unit with vital signs stable and vascular status intact. The patient handled the anesthesia as well as the procedure without significant complication. Postoperative orders as indicated in the patient's discharge chart.
== END 2023-08-03 11:20 | disposition home or self-care (01) ==
LOC: SDC 06:26
PROVIDERS: ATTEND Podiatrist Foot & Ankle Surgery
DX: S96.912A Strain of unspecified muscle and tendon at ankle and foot level, left foot, initial encounter (principal); M20.42 Other hammer toe(s) (acquired), left foot; M21.962 Unspecified acquired deformity of left lower leg; M79.672 Pain in left foot; L60.0 Ingrowing nail; E11.9 Type 2 diabetes mellitus without complications
CPT/HCPCS: 11750; 28200; 28285; 28308; 36415; 73630; 76000; 80053; 82947; 85027; 85610; 85730; 93005; C1713; J0690; J0694; J2001; J2250; J3010

== ENCOUNTER 2023-09-05 12:46 | Emergency (ER) | payer OTHER ==
--- NOTE | 2023-09-05 13:33 | ERPHSYRPT ---
- History of Present Illness Time Seen by Provider: 09/05/23 13:33 Source: patient Exam Limitations: no limitations Physician History: This is a 73-year-old white male patient who seeks his medical treatment at the [facility] and presents with a few day history of intermittent substernal central nonradiating chest pain that he described as sharp and associated high blood pressure. Patient has noticed in the last few days he has used nitroglycerin a few more times than typical for him. Patient has been taking his medicine as prescribed. Although he does not have chest pain now and did not have chest pain this morning and his systolic blood pressure currently is 158, he had contacted the [facility] and they instructed him to come to the emergency department for evaluation. Patient has a history of coronary artery disease and has had 9 cardiac stents placed in the past. He is on Xarelto. Patient also has peripheral vascular disease and has had a femoralpopliteal bypass graft in the past. Patient denies cough. He denies fever. Timing/Duration: day(s), improved Severity: mild (And no chest pain at this time) Associated Symptoms: denies symptoms Allergies/Adverse Reactions: doxycycline Allergy (Verified 09/05/23 13:33) hand blisters [id number] Reductase Inhibitor Adverse Reaction (Verified 09/05/23 13:33) leg weakness Home Medications: Amlodipine Besylate [Norvasc] 10 mg PO BID 05/01/22 [History] Atorvastatin Calcium [Lipitor] 80 mg PO UD 05/01/22 [History] Cetirizine HCl 10 mg PO DAILY 05/01/22 [History] Cholecalciferol (Vitamin D3) [Vitamin D3] 1 tab PO DAILY 05/01/22 [History] Gabapentin [Neurontin ] 2 cap PO TID 05/01/22 [History] Hydralazine HCl 50 mg PO TID 05/01/22 [History] Multivit with Minerals/Lutein [Vitrum Senior Tablet] 1 each PO DAILY 05/01/22 [History] Sucralfate 1 gm [Carafate 1 GM] 1 g PO AC 05/01/22 [History] Tizanidine HCl 4 mg [Zanaflex 4 MG] 2 mg PO TID 05/01/22 [History] Trazodone HCl 3 tab PO HS 05/01/22 [History] buPROPion HCL [Wellbutrin Xl] 300 mg PO DAILY 05/01/22 [History] carvediloL [Carvedilol] 25 mg PO BID 05/01/22 [History] lisinopriL [Lisinopril] 40 mg PO DAILY 05/01/22 [History] Nitroglycerin 0.4 mg Tablet [Nitrostat 0.4 MG Tablet] 0.4 mg SL UD 05/30/22 [History] Dexlansoprazole [Dexlansoprazole Dr] 60 mg PO BID 06/25/23 [History] Metformin HCl 500 mg [Glucophage 500 MG] 500 mg PO DAILY 06/25/23 [History] Mirabegron [Myrbetriq] 25 mg PO HS 06/25/23 [History] cloNIDine HCL 0.2 mg HS 06/25/23 [History] Hx Tetanus, Diphtheria Vaccination/Date Given: Yes Hx Influenza Vaccination/Date Given: Yes Hx Pneumococcal Vaccination/Date Given: Yes Travel Risk - International Travel Have you traveled outside of the country in past 3 weeks: No - Coronavirus Screening Are you exhibiting any of the following symptoms?: No Close contact with a COVID-19 positive Pt in past 14-21 Days: No - Vaccine Status Have you recieved a Covid-19 vaccination: Yes Senior Test Analyst: Moderna - Vaccination Dates Date of 2cond Vaccination (if applicable): unk - Review of Systems Constitutional: No Symptoms Eyes: No Symptoms Ears, Nose, & Throat: No Symptoms Respiratory: No Symptoms Cardiac: Chest Pain Abdominal/Gastrointestinal: No Symptoms (None now) Genitourinary Symptoms: No Symptoms Musculoskeletal: No Symptoms Skin: No Symptoms Neurological: No Symptoms Psychological: No Symptoms Endocrine: No Symptoms Hematologic/Lymphatic: No Symptoms Immunological/Allergic: No Symptoms All Other Systems: Reviewed and Negative - Past Medical History Pertinent Past Medical History: Yes Neurological History: No Pertinent History ENT History: No Pertinent History Cardiac History: Coronary Artery Disease, Deep Vein Thrombosis, High Cholesterol, Hypertension, Other Respiratory History: COPD Endocrine Medical History: Diabetes Type II Musculoskeletal History: Degenerative Disk Disease GI Medical History: Colitis, GERD, Ulcer History: No Pertinent History Psycho-Social History: Depression Male Reproductive Disorders: Prostate Problems - Past Surgical History Past Surgical History: Yes Neuro Surgical History: No Pertinent History Cardiac: Cardiac Catheterization, Cardiac Stent Respiratory: No Pertinent History Gastrointestinal: Bowel Surgery, Colon Resection, Hernia Repair Genitourinary: No Pertinent History Musculoskeletal: No Pertinent History, Orthopedic Surgery Male Surgical History: Vasectomy Other Surgical History: rt knee,lt shoulder - Social History Smoking Status: Current every day smoker How long have you smoked: age 9 Exposure to second hand smoke: Yes Drug Use: none Patient Lives Alone: Yes - Nursing Vital Signs Nursing Vital Signs: Initial Vital Signs Pulse Rate 68 09/05/23 13:32 Respiratory Rate 20 09/05/23 13:32 Blood Pressure 158/75 09/05/23 13:32 O2 Sat by Pulse Oximetry 96 09/05/23 13:32 Pain Scale Pain Intensity 4 - Physical Exam General Appearance: no apparent distress, alert Eye Exam: PERRL/EOMI, eyes nml inspection Ears, Nose, Throat Exam: normal ENT inspection, moist mucous membranes Neck Exam: normal inspection, non-tender, supple, full range of motion Respiratory Exam: normal breath sounds, lungs clear, airway intact, No chest tenderness, No respiratory distress Cardiovascular Exam: regular rate/rhythm, normal heart sounds, normal peripheral pulses Gastrointestinal/Abdomen Exam: soft, normal bowel sounds, No tenderness Rectal Exam: not done Back Exam: normal inspection, normal range of motion, No CVA tenderness, No vertebral tenderness Extremity Exam: normal inspection, normal range of motion, pelvis stable Neurologic Exam: alert, oriented x 3, cooperative, stacker driver II-XII nml as tested, normal mood/affect, nml cerebellar function, nml station & gait, sensation nml Skin Exam: normal color, warm, dry Lymphatic Exam: No adenopathy SpO2 Interpretation: normal O2 Delivery: Room Air - Course Nursing assessment & vital signs reviewed: Yes EKG Interpreted by Me: RATE (65), Sinus Rhythm, NORMAL AXIS, NORMAL INTERVALS, NORMAL QRS, NORMAL ST-T, Other (No acute ischemic changes on today's twelve-lead EKG.) Ordered Tests: Active Orders 24 hr Category Date Time Status Photogrammetric Technician STAT Care 09/05/23 13:49 Active EKG-ER Only STAT Care 09/05/23 13:49 Active IV Insertion STAT Care 09/05/23 13:49 Active Pulse Oximetry (ED) STAT Care 09/05/23 13:49 Active CBC W DIFF Stat Lab 09/05/23 15:05 Completed CMP Stat Lab 09/05/23 15:05 Completed NT PRO BNPII Stat Lab 09/05/23 15:05 Completed PROTIME WITH INR Stat Lab 09/05/23 15:05 Completed TROPONIN Q4H Lab 09/05/23 15:05 Completed TROPONIN Q4H Lab 09/05/23 17:59 Completed TROPONIN Q4H Lab 09/05/23 22:00 Ordered Lab/Rad Data: Laboratory Result Diagrams 09/05/23 15:05 09/05/23 15:05 Laboratory Results 09/05/23 09/05/23 09/05/23 Range/Units 17:59 15:05 15:05 WBC (4.0-10.5) x10^3/uL RBC (4.1-5.6) x10^6/uL Hgb (12.5-18.0) g/dL Hct (42-50) % MCV (78-100) fL MCH (26-32) pg MCHC (32-36) g/dL RDW (11.5-14.0) % Plt Count (150-450) x10^3/uL MPV (7.5-11.0) fL Gran % (36.0-66.0) % Immature Gran % (Auto) (0.00-0.4) % Nucleat RBC Rel Count (0.00-0.1) % Eos # (Auto) (0-0.5) x10^3/uL Immature Gran # (Auto) (0.00-0.03) x10^3u/L Absolute Lymphs (auto) (1.0-4.6) x10^3/uL Absolute Monos (auto) (0.0-1.3) x10^3/uL Absolute Nucleated RBC (0.00-0.01) x10^3u/L Lymphocytes % (24.0-44.0) % Monocytes % (0.0-12.0) % Eosinophils % (0.00-5.0) % Basophils % (0.0-0.4) % Absolute Granulocytes (1.4-6.9) x10^3/uL Basophils # (0-0.4) x10^3/uL PT (9.4-12.5) SECONDS INR (0.8-3.0) Sodium (137-145) mmol/L Potassium (3.5-5.1) mmol/L Chloride (98-107) mmol/L Carbon Dioxide (22-30) mmol/L Anion Gap (5-15) MEQ/L BUN (9-20) mg/dL Creatinine (0.66-1.25) mg/dL Estimated GFR ML/MIN Glucose (74-106) mg/dL Calcium (8.4-10.2) mg/dL Total Bilirubin (0.2-1.3) mg/dL AST (17-59) U/L ALT (0-50) U/L Alkaline Phosphatase (38-126) U/L Troponin I < 0.012 < 0.012 (0.000-0.034) ng/mL NT-Pro-B Natriuret Pep 155 (<300) pg/mL Serum Total Protein (6.3-8.2) g/dL Albumin (3.5-5.0) g/dL 09/05/23 09/05/23 09/05/23 Range/Units 15:05 15:05 15:05 WBC 7.0 (4.0-10.5) x10^3/uL RBC 4.47 (4.1-5.6) x10^6/uL Hgb 12.7 (12.5-18.0) g/dL Hct 38.9 L (42-50) % MCV 87.0 (78-100) fL MCH 28.4 (26-32) pg MCHC 32.6 (32-36) g/dL RDW 13.6 (11.5-14.0) % Plt Count 186 (150-450) x10^3/uL MPV 9.3 (7.5-11.0) fL Gran % 69.9 H (36.0-66.0) % Immature Gran % (Auto) 0.3 (0.00-0.4) % Nucleat RBC Rel Count 0.0 (0.00-0.1) % Eos # (Auto) 0.11 (0-0.5) x10^3/uL Immature Gran # (Auto) 0.02 (0.00-0.03) x10^3u/L Absolute Lymphs (auto) 1.48 (1.0-4.6) x10^3/uL Absolute Monos (auto) 0.47 (0.0-1.3) x10^3/uL Absolute Nucleated RBC 0.00 (0.00-0.01) x10^3u/L Lymphocytes % 21.2 L (24.0-44.0) % Monocytes % 6.7 (0.0-12.0) % Eosinophils % 1.6 (0.00-5.0) % Basophils % 0.3 (0.0-0.4) % Absolute Granulocytes 4.89 (1.4-6.9) x10^3/uL Basophils # 0.02 (0-0.4) x10^3/uL PT 10.8 (9.4-12.5) SECONDS INR 0.99 (0.8-3.0) Sodium 139 (137-145) mmol/L Potassium 3.5 (3.5-5.1) mmol/L Chloride 108 H (98-107) mmol/L Carbon Dioxide 22 (22-30) mmol/L Anion Gap 12.3 (5-15) MEQ/L BUN 10 (9-20) mg/dL Creatinine 1.02 (0.66-1.25) mg/dL Estimated GFR 77.1 ML/MIN Glucose 90 (74-106) mg/dL Calcium 9.7 (8.4-10.2) mg/dL Total Bilirubin 0.60 (0.2-1.3) mg/dL AST 25 (17-59) U/L ALT 19 (0-50) U/L Alkaline Phosphatase 79 (38-126) U/L Troponin I (0.000-0.034) ng/mL NT-Pro-B Natriuret Pep (<300) pg/mL Serum Total Protein 6.9 (6.3-8.2) g/dL Albumin 4.1 (3.5-5.0) g/dL - Progress Progress: improved, re-examined Progress Note: 09/05/23 14:16 This patient's medical issue is 1 of moderate complexity. Level complex in the workup performed is based on review of the patient's past medical history, review of the patient's medication list, review of the patient's drug allergy list, history present illness and physical findings on examination. The workup and the patient close placement of intravenous line, twelve-lead EKG, BNP, t roponin level, CBC, CMP. 09/05/23 18:28 labs not acute. repeat 3 hour troponin also negative no further cp Counseled pt/family regarding: lab results, diagnosis, rad results Medical Desision Making - Diagnostic Testing Diagnostic test were ordered, analyzed, and reviewed by me: Yes - Risk of complications Low Risk: Low risk of morbidity from additional dx testing or treatment - Departure Departure Disposition: Home Clinical Impression: Nonspecific chest pain, Hypertension Condition: Stable Critical Care Time: No Referrals: [facility]OSP[facility],'S [Primary Care Provider] - Follow up/PCP as directed Additional Instructions: Take your medications as prescribed. call your provider tomorrow morning for futher management and instructions
[2023-09-05 13:39] VITALS: TEMP 97.5
[2023-09-05 15:21] LABS: Absolute Neutrophil Ct (ANC) 4.89 x10^3/uL (1.4-6.9); BASOPHIL % 0.3 % (0.0-0.4); Basophil (Absolute #) 0.02 x10^3/uL (0-0.4); Eosinophil % 1.6 % (0.00-5.0); Eosinophil (Absolute #) 0.11 x10^3/uL (0-0.5); Hematocrit 38.9 % (42-50); Hemoglobin 12.7 g/dL (12.5-18.0); IMMATURE GRAN # 0.02 x10^3u/L (0.00-0.03); IMMATURE GRAN % 0.3 % (0.00-0.4); Lymphocyte (Absolute #) 1.48 x10^3/uL (1.0-4.6); Lymphocytes % 21.2 % (24.0-44.0); Mean Corpuscular Hemoglobin 28.4 pg (26-32); Mean Corpuscular Hgb Concent. 32.6 g/dL (32-36); Mean Platelet Volume 9.3 fL (7.5-11.0); Monocyte (Absolute #) 0.47 x10^3/uL (0.0-1.3); Monocytes % 6.7 % (0.0-12.0); Neutrophil % 69.9 % (36.0-66.0); Platelet Count 186 x10^3/uL (150-450); Red Blood Count 4.47 x10^6/uL (4.1-5.6); Red Cell Distribution Width 13.6 % (11.5-14.0)
[2023-09-05 15:37] LABS: INR 0.99 (0.8-3.0); PROTIME 10.8 SECONDS (9.4-12.5)
[2023-09-05 15:44] LABS: ALBUMIN 4.1 g/dL (3.5-5.0); ANION GAP 12.3 MEQ/L (5-15); BILIRUBIN,TOTAL 0.6 mg/dL (0.2-1.3); Calcium 9.7 mg/dL (8.4-10.2); Creatinine 1 1.02 mg/dL (0.66-1.25); EST GLOMERULAR FILTRATION RATE 77.1 ML/MIN; Potassium 3.5 mmol/L (3.5-5.1); Total Protein 6.9 g/dL (6.3-8.2)
[2023-09-05 17:56] VITALS: BP 162/81
[2023-09-05 19:08] VITALS: PULSE 64; RESP 16; O2SAT 95
== END 2023-09-05 19:10 | disposition home or self-care (01) ==
LOC: ED 12:46
DX: R07.9 Chest pain, unspecified (principal); I10 Essential (primary) hypertension; E78.5 Hyperlipidemia, unspecified; E11.9 Type 2 diabetes mellitus without complications; Z79.01 Long term (current) use of anticoagulants; Z79.84 Long term (current) use of oral hypoglycemic drugs; Z79.899 Other long term (current) drug therapy; Z72.0 Tobacco use
CPT/HCPCS: 36000; 36415; 80053; 83880; 84484; 85025; 85610; 93005; 93041; 94760; 99284